=== PATIENT | female | born 1975 | race Caucasian/White ===

== ENCOUNTER → 2016-07-13 | Outpatient (CLI) | payer BC ==
[2016-07-13 19:39] LABS: ALT 97 U/L (9-52); AST 46 U/L (14-36); Alkaline Phosphatase 78 U/L (38-126); Anion Gap 10 mmol/L; Blood Urea Nitrogen 15 mg/dL (7-17); Carbon Dioxide 29 mmol/L (22-30); Chloride 104 mmol/L (98-107); Cholesterol 232 mg/dL (<200); Glucose 88 mg/dL (74-99); HDL Cholesterol 53 mg/dL (40-60); Non-African American GFR(MDRD) >60 (>60 ml/min/1.73 sqM); Potassium 4.2 mmol/L (3.5-5.1); Sodium 143 mmol/L (137-145); Total Bilirubin 0.8 mg/dL (0.2-1.3); Total Protein 7.8 g/dL (6.3-8.2); Triglycerides 112 mg/dL (<150)
[2016-07-13 20:06] LABS: Aty Lym Flag Slight; CH 32.1; CHCM 34.4; HCT 45.2 % (34.0-46.0); HDW 2.64; HGB 15.4 gm/dL (11.4-16.0); MCH 31.8 pg (25.0-35.0); MCV 93.6 fL (80.0-100.0); Mean Platelet Volume 7.6; RBC 4.83 m/uL (3.80-5.40); RDW 12.7 % (11.5-15.5); WBC 8.6 k/uL (3.8-10.6); WBC (Perox) 8.44
[2016-07-13 22:13] LABS: Add Differential Manual Differential
[2016-07-13 22:20] LABS: Manual Review Performed; Nucleated Red Blood Cells 0 /100 WBC (0-0); Total Cells Counted 100
== END | disposition home or self-care (01) ==
LOC: MMGSC 14:35
PROVIDERS: ATTEND Family Medicine
DX: Z00.00 Encounter for general adult medical examination without abnormal findings (principal)
CPT/HCPCS: 36415; 80053; 80061; 84439; 84443; 85025

== ENCOUNTER → 2017-06-06 | Outpatient (CLI) | payer BC ==
[2017-06-06 18:43] LABS: ALT 119 U/L (9-52); AST 54 U/L (14-36); Albumin 3.9 g/dL (3.5-5.0); Alkaline Phosphatase 104 U/L (38-126); Anion Gap 10 mmol/L; Blood Urea Nitrogen 12 mg/dL (7-17); Calcium 9.5 mg/dL (8.4-10.2); Carbon Dioxide 27 mmol/L (22-30); Chloride 107 mmol/L (98-107); Cholesterol 184 mg/dL (<200); Glucose 109 mg/dL (74-99); HDL Cholesterol 37 mg/dL (40-60); LDL Cholesterol,Calculated 134 mg/dL (0-99); Sodium 144 mmol/L (137-145); Total Bilirubin 0.5 mg/dL (0.2-1.3); Triglycerides 65 mg/dL (<150)
[2017-06-06 18:54] LABS: T4, Free (Free Thyroxine) 1.41 ng/dL (0.78-2.19)
[2017-06-06 18:59] LABS: HCT 42.9 % (34.0-46.0); HGB 14.3 gm/dL (11.4-16.0); MCH 30.7 pg (25.0-35.0); MCHC 33.4 g/dL (31.0-37.0); MCV 91.9 fL (80.0-100.0); Mean Platelet Volume 7.7; Platelet Count 345 k/uL (150-450); RBC 4.66 m/uL (3.80-5.40); RDW 12.6 % (11.5-15.5); WBC 7.5 k/uL (3.8-10.6)
[2017-06-06 19:40] LABS: Eosinophils # (M) 0.38 k/uL (0-0.7); Lymphocytes # (M) 2.55 k/uL (1.0-4.8); Monocytes # (M) 0.23 k/uL (0-1.0); Neutrophils # (M) 4.35 k/uL (1.3-7.7); Neutrophils % (M) 58 %; Nucleated Red Blood Cells 0 /100 WBC (0-0); Polychromasia Present; Total Cells Counted 100
[2017-06-07 00:24] LABS: Vitamin D 25 Hydroxy 30.1 ng/mL (30.0-100.0)
[2017-06-08 01:35] LABS: Iron Saturation 28.72 (12.00-45.00)
== END | disposition home or self-care (01) ==
LOC: MMGSC 09:58
PROVIDERS: ATTEND Family Medicine
DX: Z00.00 Encounter for general adult medical examination without abnormal findings (principal)
CPT/HCPCS: 36415; 80053; 80061; 82306; 82607; 82728; 83540; 83550; 84439; 84443; 85025

== ENCOUNTER → 2017-06-12 | Outpatient (CLI) | payer BC ==
--- NOTE | 2017-06-12 08:56 | US ---
EXAMINATION TYPE: US liver DATE OF EXAM: 06/12/2017 COMPARISON: NONE CLINICAL HISTORY: Abnormal Liver Function Tests R94.5. EXAM MEASUREMENTS: Liver Length: 13.9 cm Gallbladder Wall: 0.3 cm CBD: 0.3 cm Right Kidney: 12.4 x 4.7 x 5.9 cm Pancreas: visualized portions wnl Liver: difficult to penetrate, some hypoechoic area around gallbladder and rohith hepatis, probable f atty sparing Gallbladder: No stones seen Evidence for sonographic Travis's sign: No CBD: wnl Right Kidney: No hydronephrosis or masses seen There is no ascites. IMPRESSION: Findings suggest hepatic steatosis. Focal fatty sparing adjacent to the gallbladder. Limi david exam.
== END | disposition home or self-care (01) ==
LOC: RADUSWWP 07:23
PROVIDERS: ATTEND Family Medicine
DX: K82.8 Other specified diseases of gallbladder (principal)
CPT/HCPCS: 76705

== ENCOUNTER → 2017-09-17 | Outpatient (CLI) | payer BC ==
[2017-09-18 05:58] LABS: Hepatitis A Antibody IgM Non-Reactive (Non-Reactive); Hepatitis B Core IgM Non-Reactive (Non-Reactive)
[2017-09-18 11:02] LABS: Ceruloplasmin 29.2 mg/dL (20.0-60.0)
== END | disposition home or self-care (01) ==
LOC: LABWHC1 16:34
PROVIDERS: ATTEND Family Medicine
DX: R79.89 Other specified abnormal findings of blood chemistry (principal)
CPT/HCPCS: 36415; 80074; 82103; 82390; 83516

== ENCOUNTER → 2018-03-14 | Outpatient (CLI) | payer BC ==
[2018-03-14 13:01] LABS: HCT 45.9 % (34.0-46.0); HGB 14.7 gm/dL (11.4-16.0); MCHC 32.1 g/dL (31.0-37.0); MCV 93.4 fL (80.0-100.0); Mean Platelet Volume 6.8; Platelet Count 384 k/uL (150-450); RBC 4.91 m/uL (3.80-5.40); RDW 12.5 % (11.5-15.5); WBC 11.6 k/uL (3.8-10.6)
[2018-03-14 18:30] LABS: Albumin 4.6 g/dL (3.80-4.90); Calcium 9.6 mg/dL (8.7-10.3); Globulin 2.3 g/dL (1.6-3.3); LDL Cholesterol,Calculated 147.6 mg/dL (0.0-131.0); Potassium 4.2 mmol/L (3.5-5.5); Total Bilirubin 0.6 mg/dL (0.2-1.2); Total Protein 6.9 g/dL (6.2-8.2); VLDL Calculation 22.4 mg/dL (5.00-40.00)
[2018-03-14 18:37] LABS: T4, Free (Free Thyroxine) 1.2 ng/dL (0.80-1.80)
[2018-03-14 19:56] LABS: Hemoglobin A1C 5.8 % (4.0-6.0)
== END ==
LOC: LABWHC1 12:02
PROVIDERS: ATTEND Family Medicine
DX: Z00.00 Encounter for general adult medical examination without abnormal findings (principal); R63.5 Abnormal weight gain; R07.89 Other chest pain
CPT/HCPCS: 36415; 80053; 80061; 83036; 84439; 84443; 85027

== ENCOUNTER → 2020-03-10 | Outpatient (CLI) | payer BC ==
[2020-03-10 09:09] LABS: HCT 47.6 % (34.0-46.0); MCH 31.9 pg (25.0-35.0); MCHC 33.7 g/dL (31.0-37.0); MCV 94.8 fL (80.0-100.0); Mean Platelet Volume 6.8; Platelet Count 385 k/uL (150-450); RBC 5.02 m/uL (3.80-5.40); RDW 12.2 % (11.5-15.5); WBC 10.8 k/uL (3.8-10.6)
[2020-03-10 15:11] LABS: African American GFR (CKD) 104.7 (60.0-200.0); Albumin 4.6 g/dL (3.80-4.90); Albumin/Globulin Ratio 1.84 (1.60-3.17); Anion Gap 5.5 mmol/L (4.00-12.00); BUN/Creat Ratio 21.25 Ratio (12.00-20.00); Calcium 9.5 mg/dL (8.7-10.3); Carbon Dioxide 27.5 mmol/L (21.6-31.8); Chol/HDL Ratio 4.61; Globulin 2.5 g/dL (1.6-3.3); LDL Cholesterol,Calculated 189.6 mg/dL (0.0-131.0); Non-African American GFR(CKD) 90.3 (60.0-200.0); Potassium 4.6 mmol/L (3.5-5.5); Total Bilirubin 0.4 mg/dL (0.2-1.2); Total Protein 7.1 g/dL (6.2-8.2); VLDL Calculation 23.4 mg/dL (5.00-40.00)
[2020-03-10 15:58] LABS: T4, Free (Free Thyroxine) 0.8 ng/dL (0.80-1.80)
== END | disposition home or self-care (01) ==
LOC: LABWHC1 08:46
PROVIDERS: ATTEND Family Medicine
DX: R94.5 Abnormal results of liver function studies (principal)
CPT/HCPCS: 36415; 80053; 80061; 84439; 84443; 85027

== ENCOUNTER → 2020-06-09 | Outpatient (CLI) | payer BC ==
--- NOTE | 2020-06-13 11:03 | MM ---
Reason for exam: screening (asymptomatic). Last mammogram was performed 1 year and 1 month ago. History: Patient is postmenopausal. Took hormonal contraceptives for 8 years. Physical Findings: A clinical breast exam by your physician is recommended on an annual basis and results should be correlated with mammographic findings. MG 3D Screening Mammo W/Cad Bilateral CC and MLO view(s) were taken. Prior study comparison: April 30, 2019, bilateral MG 3d screening mammo w/cad. September 09, 2013, bilateral MG screening mammo w CAD. The breast tissue is heterogeneously dense. This may lower the sensitivity of mammography. No significant changes when compared with prior studies. ASSESSMENT: Benign, BI-RAD 2 RECOMMENDATION: Routine screening mammogram of both breasts in 1 year.
== END | disposition home or self-care (01) ==
LOC: RADMAMWWP 07:50
PROVIDERS: ATTEND Obstetrics & Gynecology
DX: Z12.31 Encounter for screening mammogram for malignant neoplasm of breast (principal)
CPT/HCPCS: 77063; 77067

== ENCOUNTER → 2021-07-03 | Outpatient (CLI) | payer BC ==
--- NOTE | 2021-07-05 12:10 | MM ---
Reason for exam: screening (asymptomatic). Last mammogram was performed 1 year and 1 month ago. History: Patient is postmenopausal. Took hormonal contraceptives for 8 years. Physical Findings: A clinical breast exam by your physician is recommended on an annual basis and results should be correlated with mammographic findings. MG 3D Screening Mammo W/Cad Bilateral CC and MLO view(s) were taken. Prior study comparison: June 09, 2020, bilateral MG 3d screening mammo w/cad. April 30, 2019, bilateral MG 3d screening mammo w/cad. There are scattered fibroglandular densities. No significant changes when compared with prior studies. ASSESSMENT: Negative, BI-RAD 1 RECOMMENDATION: Routine screening mammogram of both breasts in 1 year.
== END | disposition home or self-care (01) ==
LOC: RADMAMWWP 12:38
PROVIDERS: ATTEND Obstetrics & Gynecology
DX: Z12.31 Encounter for screening mammogram for malignant neoplasm of breast (principal); Z78.0 Asymptomatic menopausal state
CPT/HCPCS: 77063; 77067

== ENCOUNTER → 2021-07-11 | Outpatient (CLI) | payer BC ==
--- NOTE | 2021-07-11 12:44 | BD ---
EXAMINATION TYPE: Axial Bone Density DATE OF EXAM: 07/11/2021 COMPARISON: NONE CLINICAL HISTORY: 46 years year old Female. ICD-10 CODE: Z78.0 Post menopausal w/o HRT Height: 66 Weight: 252.1 FRAX RISK QUESTIONS: Alcohol (3 or more units per day): no Family History (Parent hip fracture): no Glucocorticoids (More than 3mos): no (Ex: prednisone, prednisolone, methylprednisolone, dexamethasone, and hydrocortisone). History of Fracture in Adulthood: no Secondary Osteoporosis: 1. Type 1 Diabetes: no 2. Hyperthyroidism: no 3. Menopause before 45: yes 4. Malnutrition: no 5. Chronic liver disease: yes Rheumatoid Arthritis: no Current Tobacco Use: no RISK FACTORS HISTORY OF: Surgery to Spine/Hip(right/left)/Wrist (right/left): no Family History of Osteoporosis: no Active: yes Diet low in dairy products/other sources of calcium: yes Postmenopausal woman: yes Lost more than 2 inches in height since high school: no MEDICATIONS: Additional History: EXAM MEASUREMENTS: Bone mineral densitometry was performed using the Tyche System. Bone mineral density as measured about the Lumbar spine is: ----- L1-L4(G/cm2): 1.154 T Score Values are as follows: ----- L1: -0.4 ----- L2: -0.2 ----- L3: -0.2 ----- L4: -0.2 ----- L1-L4: -0.2 Bone mineral density : baseline Bone mineral density about the R hip (g/cm2): 0.967 Bone mineral density about the L hip (g/cm2): 0.934 T Score values are as follows: -----R Neck: -0.5 -----L Neck: -0.7 -----R Total: 0.9 -----L Total: 0.7 Bone mineral density : baseline FRAX%s: The graph provided illustrates a 2.2% chance for a major osteoporotic fx and a 0.1% chance fo r the hips probability for fx in 10 years time. IMPRESSION: Normal (Values between +1 and -1 indicate normal bone mass). Consider repeating this study in 5 year s or sooner if there is some new clinical indication. NOTE: T-SCORE=SD OF THE YOUNG ADULT MEAN.
== END | disposition home or self-care (01) ==
LOC: RADBDWWP 11:23
PROVIDERS: ATTEND Obstetrics & Gynecology
DX: Z78.0 Asymptomatic menopausal state (principal)
CPT/HCPCS: 77080

== ENCOUNTER → 2022-11-06 | Outpatient (CLI) | payer BC ==
--- NOTE | 2022-11-07 13:02 | MM ---
Reason for Exam: Screening (asymptomatic). Last mammogram was performed 1 year(s) and 4 month(s) ago. Patient History: Menarche at age 14. First Full-Term at age 31. Late child-bearing (after 31). Postmenopausal. Patient used Hormonal Contraceptives for 8 years. Risk Values: Bebe 5 year model risk: 1.2%. NCI Lifetime model risk: 12.8%. Prior Study Comparison: 04/30/2019 Bilateral Screening Mammogram, [facility]. 06/09/2020 Bilateral Screening Mammogram, [facility]. 07/03/2021 Bilateral Screening Mammogram, [facility]. Tissue Density: The breast tissue is heterogeneously dense. This may lower the sensitivity of mammography. Findings: Analyzed By CAD. Pattern appears symmetrical and stable. No suspicious groups of microcalcifications, spiculated or lobular masses, architectural distortion or other secondary signs of malignancy are mammographically apparent. Overall Assessment: Benign, BI-RAD 2 Management: Screening Mammogram of both breasts in 1 year. A negative mammogram report should not preclude additional follow up of suspicious palpable abnormalities. Patient should continue monthly self breast exam. A clinical breast exam by your physician is recommended on an annual basis and results should be correlated with mammographic findings. Electronically signed and approved by: Clifton Carlson D.O. Radiologis
== END | disposition home or self-care (01) ==
LOC: RADMAMWWP 07:26
PROVIDERS: ATTEND Obstetrics & Gynecology
DX: Z12.31 Encounter for screening mammogram for malignant neoplasm of breast (principal); Z78.0 Asymptomatic menopausal state
CPT/HCPCS: 77063; 77067

== ENCOUNTER → 2023-02-11 | Outpatient (CLI) | payer BC ==
[2023-02-11 15:28] LABS: HCT 42.8 % (37.2-46.3); HGB 14.3 g/dL (12.0-15.0); MCH 31.2 pg (27.0-32.0); MCHC 33.4 g/dL (32.0-37.0); MCV 93.2 FL (80.0-97.0); NRBC Per 100 WBC 0 X 10*3/uL (0.00-0.01); Platelet Count 365 X 10*3/uL (140-440); RBC 4.59 X 10*6/uL (4.10-5.20); RDW 12.7 % (11.5-14.5)
[2023-02-11 16:09] LABS: ALT 51 U/L (8-44); AST 23 U/L (13-35); Albumin 4.2 g/dL (3.8-4.9); Albumin/Globulin Ratio 1.56 Ratio (1.60-3.17); Alkaline Phosphatase 81 U/L (41-126); BUN/Creat Ratio 14.12 Ratio (12.00-20.00); Blood Urea Nitrogen 11.3 mg/dL (9.0-27.0); Calcium 9.3 mg/dL (8.7-10.3); Carbon Dioxide 21.6 mmol/L (21.6-31.8); Chloride 104 mmol/L (96-109); Chol/HDL Ratio 5.28 Ratio; Globulin 2.7 g/dL (1.6-3.3); Glucose 108 mg/dL (70-110); LDL Cholesterol,Calculated 154.8 mg/dL (0.0-131.0); Potassium 3.9 mmol/L (3.5-5.5); Sodium 138 mmol/L (135-145); Total Bilirubin 0.3 mg/dL (0.3-1.2); Total Protein 6.9 g/dL (6.2-8.2)
== END | disposition home or self-care (01) ==
LOC: LABWHC1 09:48
PROVIDERS: ATTEND Family Medicine
DX: Z00.00 Encounter for general adult medical examination without abnormal findings (principal); E66.01 Morbid (severe) obesity due to excess calories
CPT/HCPCS: 36415; 80053; 80061; 83036; 84443; 85027

== ENCOUNTER 2023-04-12 09:51 | Day surgery (SDC) | payer BC ==
[2023-04-08 11:37] VITALS: BMI 38.7
[~2023-04-12 09:51] MED LIST: LACTATED RINGERS 1,000 ML IV SCH; LIDOCAINE 1% (10MG/ML) FOR IV START INTRADERMA PRN
[2023-04-12 10:30] VITALS: RESP 16; TEMP 97.6
[2023-04-12 10:31] LABS: Glucose,Whole Blood 111 mg/dL (70-110)
[2023-04-12] MEDS ORDERED: PROPOFOL 10 MG/ML 20 ML VIAL IV ONE (11:02)
--- NOTE | 2023-04-12 11:22 | P.PCN ---
Date of Procedure: 04/12/23 Procedure(s) Performed: BRIEF HISTORY: Patient is a 47-year-old [place] female scheduled for an elective colonoscopy as a part of screening for colon cancer. PROCEDURE PERFORMED: Colonoscopy snare polypectomy. PREOPERATIVE DIAGNOSIS: Screening for colon cancer. IV sedation per Anesthesia. PROCEDURE: After informed consent was obtained, the patient, was brought into the endoscopy unit. IV sedation was administered by Anesthesia under continuous monitoring. Digital rectal examination was normal. Initially the Olympus CF-160 flexible video colonoscope was then inserted in the rectum, gradually advanced into the cecum without any difficulty. Careful examination was performed as the scope was gradually being withdrawn. Ileocecal valve and the appendiceal orifice were visualized and appeared normal. Prep was excellent. Mucosa of the cecum, ascending colon, appeared normal. In the transverse colon there was a 5 mm sessile polyp removed by cold snare polypectomy. Rest of the transverse colon, descending colon, appeared normal. In the sigmoid there was a 4 mm polyp removed by snare polypectomy. Rest of the sigmoid colon, and rectum appeared normal. Retroflexion was performed in the rectum and no lesions were seen. The patient tolerated the procedure well. IMPRESSION: 5 mm proximal transverse colon polyp status post cold snare polypectomy 4 mm sigmoid: Polyp status post cold snare polypectomy RECOMMENDATIONS: Findings of this examination were discussed with the patient as well as his family. She was advised to follow with the biopsy results. If the biopsy results adenoma she can have a repeat colonoscopy in 5 years..
[2023-04-12 11:44] VITALS: BP 145/82; PULSE 75
== END 2023-04-12 12:02 | disposition home or self-care (01) ==
LOC: ORWHC2ENDO 09:51
PROVIDERS: ATTEND Internal Medicine Gastroenterology
DX: Z12.11 Encounter for screening for malignant neoplasm of colon (principal); K63.5 Polyp of colon; E78.5 Hyperlipidemia, unspecified; E11.9 Type 2 diabetes mellitus without complications; F32.A Depression, unspecified; F41.9 Anxiety disorder, unspecified; Z79.84 Long term (current) use of oral hypoglycemic drugs; Z79.899 Other long term (current) drug therapy
CPT/HCPCS: 88305; 45385; J2704

== ENCOUNTER → 2023-12-26 | Outpatient (CLI) | payer BC ==
--- NOTE | 2023-12-26 14:24 | MM ---
Reason for Exam: Screening (asymptomatic). Last mammogram was performed 1 year(s) and 2 month(s) ago. Patient History: Menarche at age 14. First Full-Term at age 31. Late child-bearing (after 31). Postmenopausal. Patient used Hormonal Contraceptives for 8 years. Risk Values: Bebe 5 year model risk: 1.2%. NCI Lifetime model risk: 12.7%. Prior Study Comparison: 09/09/2013 Bilateral Screening Mammogram, [facility]. 04/30/2019 Bilateral Screening Mammogram, [facility]. 06/09/2020 Bilateral Screening Mammogram, [facility]. 07/03/2021 Bilateral Screening Mammogram, [facility]. 11/06/2022 Bilateral MG 3D screening mammo w/cad, [facility]. Tissue Density: The breasts are heterogeneously dense, which may obscure small masses. Findings: Analyzed By CAD. There is no suspicious group of microcalcifications or new suspicious mass in either breast. Overall Assessment: Negative, BI-RAD 1 Management: Screening Mammogram of both breasts in 1 year. . Patient should continue monthly self-breast exams. A clinical breast exam by your physician is recommended on an annual basis. This exam should not preclude additional follow-up of suspicious palpable abnormalities. Note on Bebe scores and lifetime risk: 1. A Bebe score greater than 3% is considered moderate risk. If this is the case, consider specialist referral to assess eligibility for a risk reducing agent. 2. If overall lifetime risk for the development of breast cancer is 20% or higher, the patient may qualify for future screening with alternating mammogram and breast MRI. [facility], , 12/26/2023 2:21 PM. Electronically signed and approved by: Ethan Chapman M.D. Radiologis
== END | disposition home or self-care (01) ==
LOC: RADMAMWWP 07:43
PROVIDERS: ATTEND Family Medicine
DX: Z12.31 Encounter for screening mammogram for malignant neoplasm of breast (principal); Z78.0 Asymptomatic menopausal state; R92.333 Mammographic heterogeneous density, bilateral breasts
CPT/HCPCS: 77063; 77067

== ENCOUNTER → 2023-12-26 | Outpatient (CLI) | payer BC ==
[2023-12-26 15:27] LABS: HCT 44.5 % (37.2-46.3); HGB 14.7 g/dL (12.0-15.0); MCH 32.2 pg (27.0-32.0); MCV 97.4 FL (80.0-97.0); Mean Platelet Volume 9.9 FL (9.5-12.2); NRBC Per 100 WBC 0 X 10*3/uL (0.00-0.01); Platelet Count 361 X 10*3/uL (140-440); RBC 4.57 X 10*6/uL (4.10-5.20); RDW 13.2 % (11.5-14.5); WBC 10.96 X 10*3/uL (4.50-10.00)
[2023-12-26 18:18] LABS: ALT 72 U/L (8-44); AST 28 U/L (13-35); Albumin 4.2 g/dL (3.8-4.9); Alkaline Phosphatase 102 U/L (41-126); Blood Urea Nitrogen 12.6 mg/dL (9.0-27.0); Calcium 9.2 mg/dL (8.7-10.3); Carbon Dioxide 21.8 mmol/L (21.6-31.8); Chloride 108 mmol/L (96-109); Chol/HDL Ratio 4.35 Ratio; Globulin 2.8 g/dL (1.6-3.3); Glucose 137 mg/dL (70-110); Potassium 4.5 mmol/L (3.5-5.5); Sodium 143 mmol/L (135-145); Total Bilirubin <0.2 mg/dL (0.3-1.2)
== END | disposition home or self-care (01) ==
LOC: LABWHC1 08:20
PROVIDERS: ATTEND Family Medicine
DX: Z00.00 Encounter for general adult medical examination without abnormal findings (principal); F41.9 Anxiety disorder, unspecified; E78.5 Hyperlipidemia, unspecified; R73.01 Impaired fasting glucose
CPT/HCPCS: 36415; 80053; 80061; 83036; 84443; 85027